=== PATIENT | male | born 1990 | race Two or more races ===

== ENCOUNTER 2019-01-13 15:13 | Emergency (ER) | payer OTHER ==
[~2019-01-13] VITALS: Ht 182.9 cm; Wt 76.7 kg
[2019-01-13] MEDS ORDERED: LORAZEPAM 0.5 MG TABLET PO ONE (15:30)
--- NOTE | 2019-01-13 15:34 | NUR ---
Patient discharged to home in stable conditon. Written and verbal after care instructions given. Patient verbalizes understanding of instructions.
[2019-01-13] MEDS ORDERED: LORAZEPAM 1 MG TABLET ONE (15:35)
== END 2019-01-13 15:35 | disposition home or self-care (01) ==
LOC: ER 15:15
DX: F41.9 Anxiety disorder, unspecified (principal)
CPT/HCPCS: A4663

== ENCOUNTER 2019-01-15 21:04 | Emergency (ER) | payer OTHER ==
[~2019-01-15] VITALS: Ht 182.9 cm; Wt 72.6 kg
--- NOTE | 2019-01-15 21:51 | NUR ---
PATIENT LEFT WITHOUT BEING SEEN BY ERMD
== END 2019-01-15 21:53 | disposition left against medical advice (07) ==
LOC: ER 21:04
DX: Z53.21 Procedure and treatment not carried out due to patient leaving prior to being seen by health care provider (principal)
CPT/HCPCS: A4663

== ENCOUNTER 2019-02-02 03:31 | Emergency (ER) | payer OTHER ==
[~2019-02-02] VITALS: Ht 182.9 cm; Wt 76.7 kg
[2019-02-02] MEDS ORDERED: chlorproMAZINE 50 MG/2 ML AMPUL ONE (03:56)
[2019-02-02] MEDS ORDERED: chlorproMAZINE 50 MG/2 ML AMPUL IM ONE (04:00)
[2019-02-02 04:36] VITALS: BP 146/70
== END 2019-02-02 04:37 | disposition home or self-care (01) ==
LOC: ER 03:32
DX: F15.10 Other stimulant abuse, uncomplicated (principal); F17.200 Nicotine dependence, unspecified, uncomplicated
CPT/HCPCS: 96372; 99283; J3230; A4663

== ENCOUNTER 2019-02-11 16:27 | Emergency (ER) | payer OTHER ==
[~2019-02-11] VITALS: Ht 182.9 cm; Wt 76.7 kg
[2019-02-11] MEDS ORDERED: LORAZEPAM 0.5 MG TABLET PO ONE (16:45)
[2019-02-11] MEDS ORDERED: LORAZEPAM 1 MG TABLET ONE (16:47)
--- NOTE | 2019-02-11 16:55 | NUR ---
Patient received to ED with co rapid heart rate, set on monitor HR [address] ST. Patient starts having panic attack, and HR increased to 157, and calming down with nurses at bedside. EKG being done, and patient seen by MD, and orders written.
[2019-02-11] MEDS ORDERED: HALOPERIDOL LACTATE 5 MG/1 ML VIAL ONE (16:59)
[2019-02-11] MEDS ORDERED: LORAZEPAM 2 MG/1 ML VIAL IV ONE (17:00)
[2019-02-11] MEDS ORDERED: HALOPERIDOL LACTATE 5 MG/1 ML VIAL IV ONE (17:00)
[2019-02-11] MEDS ORDERED: LORAZEPAM 2 MG/1 ML VIAL ONE (17:00)
--- NOTE | 2019-02-11 18:00 | NUR ---
PT RESTING, NO SIGN OF DISTRESS AT THIS POINT.
--- NOTE | 2019-02-11 18:57 | NUR ---
HANDS OFF REPORT GIVEN TO EHSAN GIBBSRN
--- NOTE | 2019-02-11 19:32 | NUR ---
Patient discharged to home in stable conditon. Written and verbal after care instructions given. Patient verbalizes understanding of instructions. Instructed patient to not drive. Patients girlfriend ordered an uber to pick patient up. Patient ambulated with stable gait.
[2019-02-11 19:35] VITALS: BP 130/60
== END 2019-02-11 17:20 | disposition home or self-care (01) ==
LOC: ER 16:29
DX: F15.10 Other stimulant abuse, uncomplicated (principal); F17.200 Nicotine dependence, unspecified, uncomplicated
CPT/HCPCS: 93005; 96374; 99283; J1630; A4663; J2060; J7030

== ENCOUNTER 2019-02-19 05:44 | Emergency (ER) | payer OTHER ==
[~2019-02-19] VITALS: Ht 182.9 cm; Wt 76.7 kg
[2019-02-19] MEDS ORDERED: LORAZEPAM 0.5 MG TABLET PO ONE (06:15)
[2019-02-19] MEDS ORDERED: LORAZEPAM 1 MG TABLET ONE (06:15)
--- NOTE | 2019-02-19 06:18 | NUR ---
Patient discharged to home in stable conditon. Written and verbal after care instructions given. Patient verbalizes understanding of instructions. Walked out of ER with no distress noted
[2019-02-19 06:19] VITALS: BP 118/76
== END 2019-02-19 06:19 | disposition home or self-care (01) ==
LOC: ER 05:45
DX: F41.9 Anxiety disorder, unspecified (principal); F15.10 Other stimulant abuse, uncomplicated; F17.290 Nicotine dependence, other tobacco product, uncomplicated; Z76.0 Encounter for issue of repeat prescription; Z71.6 Tobacco abuse counseling
CPT/HCPCS: A4663

== ENCOUNTER 2019-02-22 14:29 | Emergency (ER) | payer OTHER ==
[~2019-02-22] VITALS: Ht 182.9 cm; Wt 76.7 kg
[2019-02-22] MEDS ORDERED: LORAZEPAM 0.5 MG TABLET PO ONE (15:00)
[2019-02-22] MEDS ORDERED: LORAZEPAM 1 MG TABLET ONE (15:02)
--- NOTE | 2019-02-22 15:07 | NUR ---
PT WAS EVALUATED BY DR REVELES. PT WAS D/C'D TO HOME. D/C INSTRUCTIONS GIVEN TO THE PT.
[2019-02-22 15:08] VITALS: BP 135/69
== END 2019-02-22 15:11 | disposition home or self-care (01) ==
LOC: ER 14:29
DX: F41.9 Anxiety disorder, unspecified (principal); F15.10 Other stimulant abuse, uncomplicated; F17.200 Nicotine dependence, unspecified, uncomplicated; Z76.0 Encounter for issue of repeat prescription
CPT/HCPCS: A4663

== ENCOUNTER 2019-03-08 14:35 | Emergency (ER) | payer OTHER ==
[~2019-03-08] VITALS: Ht 182.9 cm; Wt 76.7 kg
[2019-03-08] MEDS ORDERED: LORAZEPAM 0.5 MG TABLET PO ONE (15:00)
[2019-03-08 15:03] VITALS: BP 138/97
--- NOTE | 2019-03-08 15:03 | NUR ---
Patient discharged to home in stable conditon. Written and verbal after care instructions given. Patient verbalizes understanding of instructions.
[2019-03-08] MEDS ORDERED: LORAZEPAM 1 MG TABLET ONE (15:05)
== END 2019-03-08 15:04 | disposition home or self-care (01) ==
LOC: ER 14:35
DX: F41.9 Anxiety disorder, unspecified (principal); F17.200 Nicotine dependence, unspecified, uncomplicated; F15.10 Other stimulant abuse, uncomplicated; Z76.0 Encounter for issue of repeat prescription
CPT/HCPCS: A4663

== ENCOUNTER 2019-03-19 22:47 | Emergency (ER) | payer OTHER ==
[~2019-03-19] VITALS: Ht 182.9 cm; Wt 75.3 kg
[2019-03-19] MEDS ORDERED: LORAZEPAM 1 MG TABLET ONE (23:37)
[2019-03-19] MEDS ORDERED: LORAZEPAM 0.5 MG TABLET PO ONE (23:45)
--- NOTE | 2019-03-19 23:50 | NUR ---
PATIENT STATES FEELING BETTER NOW
--- NOTE | 2019-03-19 23:51 | NUR ---
Patient discharged to home in stable conditon. Written and verbal after care instructions given. Patient verbalizes understanding of instructions. WALKED OUT OF ER WITH NO DISTRESS NOTED
[2019-03-19 23:54] VITALS: BP 128/84
== END 2019-03-19 23:54 | disposition home or self-care (01) ==
LOC: ER 22:47
DX: F41.9 Anxiety disorder, unspecified (principal); F15.10 Other stimulant abuse, uncomplicated; F41.0 Panic disorder [episodic paroxysmal anxiety]
CPT/HCPCS: A4663

== ENCOUNTER 2019-03-23 14:36 | Emergency (ER) | payer OTHER ==
[~2019-03-23] VITALS: Ht 182.9 cm; Wt 75.3 kg
--- NOTE | 2019-03-23 15:42 | NUR ---
STEPHANIE FRANK AT BEDSIDE FOR MSE.
[2019-03-23] MEDS ORDERED: LORAZEPAM 0.5 MG TABLET PO ONE (15:45)
[2019-03-23] MEDS ORDERED: LORAZEPAM 1 MG TABLET ONE (15:46)
--- NOTE | 2019-03-23 15:47 | NUR ---
Patient discharged to home in stable conditon. Written and verbal after care instructions given. Patient verbalizes understanding of instructions. ALL BELONGINGS W/ PT. PT SELF-AMBULATED W/O DIFFICULTY. PT REPORT HE WILL WALK HOME.
[2019-03-23 15:48] VITALS: BP 122/72
== END 2019-03-23 15:49 | disposition home or self-care (01) ==
LOC: ER 14:36
DX: F41.9 Anxiety disorder, unspecified (principal); F15.10 Other stimulant abuse, uncomplicated; F17.200 Nicotine dependence, unspecified, uncomplicated; Z76.0 Encounter for issue of repeat prescription
CPT/HCPCS: A4663

== ENCOUNTER 2019-08-15 15:06 | Emergency (ER) | payer OTHER ==
[~2019-08-15] VITALS: Ht 182.9 cm; Wt 75.3 kg
--- NOTE | 2019-08-15 15:06 | NUR ---
Patient ambulated to ER bed 2A with brisk steady gait, c/o L ankle pains & swelling for a week- distal pulses+, CMS intact, patient admits to IV drug use, pending MD evaluation
[2019-08-15] MEDS ORDERED: LIDOCAINE 1%-EPI 1:100,000 20 ML VIAL TP ONE (15:45)
[2019-08-15] MEDS ORDERED: IBUPROFEN 800 MG TABLET PO ONE (15:45)
[2019-08-15] MEDS ORDERED: IBUPROFEN 800 MG TABLET ONE (15:50)
[2019-08-15] MEDS ORDERED: LIDOCAINE 1%-EPI 1:100,000 20 ML VIAL ONE (15:57)
[2019-08-15 16:01] LABS: BASOPHILS % (AUTO) 0.6 % (0.0-2.0); CREATININE 0.9 mg/dL (0.6-1.3); EOSINOPHILS # (AUTO) 0.1 K/uL (0.0-0.7); EOSINOPHILS % (AUTO) 2.5 % (0.0-7.0); HEMATOCRIT 32.4 % (36.7-47.1); HEMOGLOBIN 10.5 g/dL (12.5-16.3); LYMPHOCYTES # (AUTO) 2.3 K/uL (20.0-40.0); MEAN CORPUSCULAR HEMOGLOBIN 24.4 uug (23.8-33.4); MEAN CORPUSCULAR HGB CONC 32 g/dL (32.5-36.3); MEAN CORPUSCULAR VOLUME 75.5 fL (73.0-96.2); MONOCYTES # (AUTO) 0.6 K/uL (2.0-10.0); NEUTROPHILS # (AUTO) 2.7 K/uL (1.8-8.9); NEUTROPHILS % (AUTO) 46.9 % (38.5-71.5); PLATELET COUNT (AUTO) 435 K/uL (152-348); POTASSIUM 3.8 mmol/L (3.5-5.1); WHITE BLOOD COUNT (AUTO) 5.8 K/uL (3.6-10.2)
--- NOTE | 2019-08-15 16:01 | NUR ---
Patient is eating sandwich & cup of fruit with good appetite.
[2019-08-15 16:07] LABS: BILIRUBIN,DIRECT 0.1 mg/dL (0.0-0.2); BILIRUBIN,TOTAL 0.1 mg/dL (0.2-1.0); TOTAL PROTEIN, SERUM 8.5 g/dL (6.4-8.2)
[2019-08-15] MEDS ORDERED: CEFTRIAXONE 1 G VIAL IM ONE (16:30)
[2019-08-15] MEDS ORDERED: AZITHROMYCIN 250 MG TABLET PO ONE (16:30)
[2019-08-15] MEDS ORDERED: LIDOCAINE HCL 1% 20 ML VIAL ONE (16:38)
[2019-08-15] MEDS ORDERED: AZITHROMYCIN 250 MG TABLET ONE (16:39)
[2019-08-15] MEDS ORDERED: CEFTRIAXONE 1 G VIAL ONE (16:39)
--- NOTE | 2019-08-15 16:44 | NUR ---
Pending urine specimen, patient is resting comfortably on gurney with a friend & dog. Nursing supervisor mixing John notified re: dog in ER. "Okay to be with patient." per g supervisor mixing John.
--- NOTE | 2019-08-15 16:47 | NUR ---
A pitcher of juice was given to patient. Comfort and safety measures maintained.
--- NOTE | 2019-08-15 17:01 | NUR ---
Another pitcher of juice was given to patient, still for urine specimen
--- NOTE | 2019-08-15 17:30 | NUR ---
Patient is resting comfortably on gurney with eyes closed.
--- NOTE | 2019-08-15 17:31 | NUR ---
"Okay to go home." per doctor even without urine specimen. Patient was given written and verbal discharge instructions. Patient verbalizes understanding of instructions. Patient is ambulatory with steady gait. Patient refuses offer of penitentiary placement. Patient was also given a list of available shelters in surrounding area. Patient will wait for his roommate in the waiting room with his dog.
--- NOTE | 2019-08-15 17:36 | NUR ---
Tap card x1 was requested from the [facility].
== END 2019-08-15 17:38 | disposition home or self-care (01) ==
LOC: ER 15:09
DX: M25.472 Effusion, left ankle (principal); M13.172 Monoarthritis, not elsewhere classified, left ankle and foot; F15.10 Other stimulant abuse, uncomplicated; F12.10 Cannabis abuse, uncomplicated; F17.200 Nicotine dependence, unspecified, uncomplicated; F41.9 Anxiety disorder, unspecified
CPT/HCPCS: 20605; 36415; 73610; 80048; 80076; 85025; 85651; 96372; 99284; J0696; J3490 ×2; A4663; Q0144

== ENCOUNTER 2019-09-15 17:23 | Emergency (ER) | payer OTHER ==
[~2019-09-15] VITALS: Ht 182.9 cm; Wt 75.7 kg
--- NOTE | 2019-09-15 17:23 | NUR ---
DORA GONZALEZ was called on this patient prior to entering ER bed 3. Patient was seen arguing with ER staff in front of the registration window. Patient refused to move away from the ER double doors after repeated reminders that he can get hurt when the doors open. Patient kept banging on the wall loudly.
--- NOTE | 2019-09-15 18:04 | NUR ---
Patient ate 100% of hot dinner tray with very good appetite.
--- NOTE | 2019-09-15 18:16 | NUR ---
Dr Mendoza is at bedside doing the MSE.
--- NOTE | 2019-09-15 18:26 | NUR ---
disciplinary hearing officer wanded patient and belongings. 2 knives & IV needles were identified.
[2019-09-15] MEDS ORDERED: LORAZEPAM 0.5 MG TABLET PO ONE (18:30)
[2019-09-15] MEDS ORDERED: LORAZEPAM 1 MG TABLET ONE (18:30)
--- NOTE | 2019-09-15 18:39 | NUR ---
Patient given written and verbal discharge instructions. Patient verbalized understanding & compliance of instructions. Patient is ambulatory with steady gait. Patient refuses offer of detention placement. Patient was given a list of available shelters in surrounding area. Juice x3 cups, fruit cup & water bottle were given per patient's request. Dinner tray was offered. Telephone assistance given as well. fine arts packer for discharge done.
== END 2019-09-15 18:44 | disposition home or self-care (01) ==
LOC: ER 17:28
DX: F41.9 Anxiety disorder, unspecified (principal); F15.10 Other stimulant abuse, uncomplicated; F12.10 Cannabis abuse, uncomplicated; F17.200 Nicotine dependence, unspecified, uncomplicated; Z76.0 Encounter for issue of repeat prescription
CPT/HCPCS: A4663

== ENCOUNTER 2019-11-05 18:32 | Emergency (ER) | payer OTHER ==
[~2019-11-05] VITALS: Ht 182.9 cm; Wt 74.8 kg
--- NOTE | 2019-11-05 18:59 | NUR ---
PATIENT WAS MSE BY DR HALEY IN ROOM 03A. PATIENT A & O X4.
[2019-11-05] MEDS ORDERED: LORAZEPAM 1 MG TABLET ONE (19:05)
[2019-11-05] MEDS: LORAZEPAM 0.5 MG TABLET PO ONE (19:05)
--- NOTE | 2019-11-05 19:17 | NUR ---
Patient discharged to home in stable conditon. Written and verbal after care instructions given. Patient verbalizes understanding of instructions.
[2019-11-05 19:20] VITALS: BP 138/77
== END 2019-11-05 19:23 | disposition home or self-care (01) ==
LOC: ER 18:32
DX: F41.9 Anxiety disorder, unspecified (principal); F15.10 Other stimulant abuse, uncomplicated; F13.20 Sedative, hypnotic or anxiolytic dependence, uncomplicated; F12.10 Cannabis abuse, uncomplicated; F17.290 Nicotine dependence, other tobacco product, uncomplicated; Z76.0 Encounter for issue of repeat prescription; Z71.6 Tobacco abuse counseling
CPT/HCPCS: A4663

== ENCOUNTER 2020-06-13 02:42 | Emergency (ER) | payer OTHER ==
[~2020-06-13] VITALS: Ht 182.9 cm; Wt 78.0 kg
--- NOTE | 2020-06-13 02:50 | NUR ---
Dr. Casey at bedside for MSE
[2020-06-13] MEDS ORDERED: [UNRECOGNIZED DRUG - REMARK] (02:52)
[2020-06-13] MEDS ORDERED: IV NORMAL SALINE 1000 ML BAG IV ONE (03:00)
--- NOTE | 2020-06-13 03:40 | NUR ---
IV removed. Catheter intact and site benign. Pressure and 4x4 gauze applied to site. No bleeding noted.
--- NOTE | 2020-06-13 03:43 | NUR ---
Patient does not wish to proceed with medical care recommended by Dr. Casey. Patient given information related to possible complications, up to and including , which could occur as a result of leaving the hospital at this time. Patient verbalizes understanding of risks involved due to leaving against medical advice. Patient has signed AMA form. aa/ox4. able to speak in complete sentences ambulatory with steady gait all belongings with pt
[2020-06-13 03:46] LABS: BASOPHILS # (AUTO) 0.1 K/uL (0.0-8.0); BASOPHILS % (AUTO) 1.2 % (0.0-2.0); CARBON DIOXIDE 26 mmol/L (21-32); CHLORIDE 104 mmol/L (98-107); CREATININE 1.1 mg/dL (0.6-1.3); EOSINOPHILS # (AUTO) 0.1 K/uL (0.0-0.7); EOSINOPHILS % (AUTO) 1.1 % (0.0-7.0); GLUCOSE 104 mg/dL (74-106); HEMATOCRIT 33.8 % (36.7-47.1); HEMOGLOBIN 11.3 g/dL (12.5-16.3); LYMPHOCYTES # (AUTO) 1.5 K/uL (20.0-40.0); LYMPHOCYTES % (AUTO) 26.5 % (20.5-51.5); MEAN CORPUSCULAR HEMOGLOBIN 25.8 uug (23.8-33.4); MEAN CORPUSCULAR HGB CONC 33 g/dL (32.5-36.3); MEAN CORPUSCULAR VOLUME 77.5 fL (73.0-96.2); MONOCYTES # (AUTO) 0.7 K/uL (2.0-10.0); MONOCYTES % (AUTO) 11.7 % (0.0-11.0); NEUTROPHILS # (AUTO) 3.3 K/uL (1.8-8.9); NEUTROPHILS % (AUTO) 59.5 % (38.5-71.5); PLATELET COUNT (AUTO) 302 K/uL (152-348); POTASSIUM 3.3 mmol/L (3.5-5.1); RED BLOOD CELL COUNT(AUTO) 4.36 MIL/uL (4.06-5.63); UREA NITROGEN, BLOOD 17 mg/dL (7-18); WHITE BLOOD COUNT (AUTO) 5.6 K/uL (3.6-10.2)
[2020-06-13 03:47] VITALS: BP 126/83
[2020-06-13 03:52] LABS: ALANINE AMINOTRANSFERASE 20 U/L (16-63); ALKALINE PHOSPHATASE 102 U/L (50-136); ASPARTATE AMINOTRANSFERASE 33 U/L (15-37); BILIRUBIN,DIRECT < 0.1 mg/dL (0.0-0.2); BILIRUBIN,TOTAL 0.3 mg/dL (0.2-1.0); TOTAL PROTEIN, SERUM 7.8 g/dL (6.4-8.2)
[2020-06-13 03:55] LABS: ETHANOL < 3 MG/DL (0-0)
[2020-06-13 04:02] LABS: THYROID STIMULATING HORMONE 0.792 mIU/mL (0.358-3.740)
== END 2020-06-13 03:43 | disposition left against medical advice (07) ==
LOC: ER 02:46
DX: R07.9 Chest pain, unspecified (principal); R06.02 Shortness of breath; F15.10 Other stimulant abuse, uncomplicated; R07.2 Precordial pain; F17.200 Nicotine dependence, unspecified, uncomplicated
CPT/HCPCS: 36415; 70030-TC; 84443; 85025; 93005; A4663; G0480

== ENCOUNTER 2020-08-10 17:33 | Emergency (ER) | payer OTHER ==
[~2020-08-10] VITALS: Ht 182.9 cm; Wt 78.5 kg
[~2020-08-10 17:33] MED LIST: [UNRECOGNIZED DRUG - REMARK]
[2020-08-10] MEDS ORDERED: ALPR2TAB2 PO (17:41)
[2020-08-10] MEDS ORDERED: KETOROLAC TROMETHAMINE 30 MG INJ ONE (17:56)
[2020-08-10] MEDS ORDERED: LORAZEPAM 1 MG TABLET ONE (17:56)
[2020-08-10] MEDS ORDERED: LORAZEPAM 0.5 MG TABLET PO ONE (18:00)
[2020-08-10] MEDS ORDERED: KETOROLAC TROMETHAMINE 15 MG INJ IM ONE (18:00)
[2020-08-10 18:15] VITALS: BP 131/75
--- NOTE | 2020-08-10 18:15 | NUR ---
Patient discharged to home in stable condition. Written and verbal after care instructions given. Patient verbalizes understanding of instructions. Stressed follow up or return to ER for worsening s/s.
== END 2020-08-10 18:16 | disposition home or self-care (01) ==
LOC: ER 17:37
DX: R07.89 Other chest pain (principal); F41.9 Anxiety disorder, unspecified; F19.10 Other psychoactive substance abuse, uncomplicated; F15.10 Other stimulant abuse, uncomplicated
CPT/HCPCS: 71045; 93005; 96372; 99284; J1885; A4663

== ENCOUNTER 2020-08-16 22:51 | Emergency (ER) | payer OTHER ==
[~2020-08-16] VITALS: Ht 182.9 cm; Wt 74.8 kg
[~2020-08-16 22:51] MED LIST changes: +ALPR2TAB2 PO
--- NOTE | 2020-08-16 23:15 | NUR ---
at bedside for assessment
[2020-08-16] MEDS ORDERED: IV NORMAL SALINE 1000 ML BAG IV ONE (23:30)
[2020-08-16 23:42] LABS: BASOPHILS # (AUTO) 0.1 K/uL (0.0-8.0); BASOPHILS % (AUTO) 0.9 % (0.0-2.0); EOSINOPHILS # (AUTO) 0.1 K/uL (0.0-0.7); EOSINOPHILS % (AUTO) 1.2 % (0.0-7.0); HEMATOCRIT 36.4 % (36.7-47.1); HEMOGLOBIN 11.9 g/dL (12.5-16.3); LYMPHOCYTES # (AUTO) 1.4 K/uL (20.0-40.0); LYMPHOCYTES % (AUTO) 13.3 % (20.5-51.5); MEAN CORPUSCULAR HEMOGLOBIN 26.3 uug (23.8-33.4); MEAN CORPUSCULAR HGB CONC 33 g/dL (32.5-36.3); MEAN CORPUSCULAR VOLUME 80.1 fL (73.0-96.2); MONOCYTES # (AUTO) 0.9 K/uL (2.0-10.0); NEUTROPHILS # (AUTO) 8.1 K/uL (1.8-8.9); NEUTROPHILS % (AUTO) 76.6 % (38.5-71.5); PLATELET COUNT (AUTO) 402 K/uL (152-348); RED BLOOD CELL COUNT(AUTO) 4.54 MIL/uL (4.06-5.63); WHITE BLOOD COUNT (AUTO) 10.7 K/uL (3.6-10.2)
[2020-08-16 23:52] LABS: CARBON DIOXIDE 25 mmol/L (21-32); CHLORIDE 105 mmol/L (98-107); CREATININE 0.9 mg/dL (0.6-1.3); GLUCOSE 79 mg/dL (74-106); POTASSIUM 3.2 mmol/L (3.5-5.1); UREA NITROGEN, BLOOD 7 mg/dL (7-18)
[2020-08-16 23:58] LABS: ALANINE AMINOTRANSFERASE 27 U/L (16-63); ALKALINE PHOSPHATASE 110 U/L (50-136); ASPARTATE AMINOTRANSFERASE 26 U/L (15-37); BILIRUBIN,DIRECT < 0.1 mg/dL (0.0-0.2); BILIRUBIN,TOTAL < 0.1 mg/dL (0.2-1.0); LIPASE 81 U/L (73-393); TOTAL PROTEIN, SERUM 7.9 g/dL (6.4-8.2)
[2020-08-17] MEDS ORDERED: CIPROFLOXACIN HCL 250 MG TABLET ONE (00:12)
[2020-08-17] MEDS ORDERED: POTASSIUM CHLORIDE 20 MEQ TAB.PRT.SR PO ONE (00:15)
[2020-08-17] MEDS ORDERED: CIPROFLOXACIN HCL 250 MG TABLET PO ONE (00:15)
[2020-08-17] MEDS ORDERED: POTASSIUM CHLORIDE 20 MEQ TAB.PRT.SR ONE (00:28)
--- NOTE | 2020-08-17 00:33 | NUR ---
Patient discharged to home in stable condition. Took all belongings, instructed to take all antibiotics. no signs of acute distress. Written and verbal after care instructions given. Patient verbalizes understanding of instructions. Stressed follow up or return to ER for worsening s/s.
[2020-08-17 00:37] VITALS: BP 115/70
== END 2020-08-17 00:34 | disposition home or self-care (01) ==
LOC: ER 22:55
DX: R10.33 Periumbilical pain (principal); R19.7 Diarrhea, unspecified; E87.6 Hypokalemia; D72.829 Elevated white blood cell count, unspecified; D64.9 Anemia, unspecified; F41.9 Anxiety disorder, unspecified; Z79.899 Other long term (current) drug therapy
CPT/HCPCS: 83690; 85025; A4663; J7030

== ENCOUNTER 2020-09-14 10:08 | Emergency (ER) | payer OTHER ==
[~2020-09-14] VITALS: Ht 182.9 cm; Wt 74.8 kg
--- NOTE | 2020-09-14 10:32 | NUR ---
Patient ambulated with stable gait. A/Ox4. Speech is clear, and speaks in complete sentences. Patient appears very anxious. Patient came for c/o difficulty breathing. Patient has a history of poly drug abuse. Denies any n/v/d or any gu distress. Patient in bed at lowest position, sr upx2, call light within reach. Fall precautions implemented per protocol. Awaiting FRANCISCA donald.
--- NOTE | 2020-09-14 10:52 | NUR ---
Patient LWBS, states that he will go get checked for COVID at the drive through [facility]. Patient A/Ox4. No SI/HI or any A/V hallucinations.
[2020-09-14 10:53] VITALS: BP 131/73
--- NOTE | 2020-09-14 10:54 | NUR ---
Patient's father will be picking him up and taking him elsewhere.
== END 2020-09-14 10:54 | disposition left against medical advice (07) ==
LOC: ER 10:08
DX: Z75.3 Unavailability and inaccessibility of health-care facilities (principal)
CPT/HCPCS: A4663

== ENCOUNTER 2020-11-19 22:09 | Emergency (ER) | payer OTHER ==
[~2020-11-19] VITALS: Ht 182.9 cm; Wt 74.8 kg
[2020-11-19] MEDS ORDERED: [UNRECOGNIZED DRUG - REMARK] (22:50)
[2020-11-19] MEDS ORDERED: CEPH-570 PO (22:52)
--- NOTE | 2020-11-19 23:35 | NUR ---
Dr. Casey at bedside for MSE.
--- NOTE | 2020-11-19 23:40 | NUR ---
Xray at bedside.
--- NOTE | 2020-11-20 00:05 | NUR ---
Patient discharged to home in stable condition. Written and verbal after care instructions given. Patient verbalizes understanding of instructions. Stressed follow up or return to ER for worsening s/s. Patient out of ER with steady gait, no acute signs of distress, VSS, all belongings taken, provided with a copy of Xray result.
[2020-11-20 00:06] VITALS: BP 121/82
== END 2020-11-20 00:06 | disposition home or self-care (01) ==
LOC: ER 22:13
DX: S90.812A Abrasion, left foot, initial encounter (principal); W25.XXXA Contact with sharp glass, initial encounter; W22.8XXA Striking against or struck by other objects, initial encounter; Y92.89 Other specified places as the place of occurrence of the external cause; F41.9 Anxiety disorder, unspecified; F15.10 Other stimulant abuse, uncomplicated; Z79.899 Other long term (current) drug therapy
CPT/HCPCS: 73630; A4663

== ENCOUNTER 2021-05-07 00:07 | Emergency (ER) | payer OTHER ==
[~2021-05-07] VITALS: Ht 188 cm; Wt 77.1 kg
[~2021-05-07 00:07] MED LIST changes: -ALPR2TAB2 PO; +CEPH-570 PO
--- NOTE | 2021-05-07 01:02 | NUR ---
Dr. Guerra at bedside to evaluate pt.
[2021-05-07] MEDS ORDERED: VANCOMYCIN 1G/D5W 200 ML PIGGYBACK IV ONE (01:15)
[2021-05-07] MEDS ORDERED: TDAP DIPH,PERTUSS,TET VAC/PF 0.5 ML DISP.SYRIN IM ONE (01:15)
[2021-05-07] MEDS ORDERED: PIPERACILLIN SODIUM/TAZOBACTAM 3.375 G in IV DEXTROSE 5% 50 ML IV ONE (01:15)
--- NOTE | 2021-05-07 01:25 | NUR ---
TDAP Not administered because pt. recieved TDAP from [facility] today.
--- NOTE | 2021-05-07 01:27 | NUR ---
Pt. cc left index finger swelling and redness, started 1 day ago. Pt. was at [facility] today for his finger. Pt. recieved antibiotics there. Pt left AMA because he stated he was tired of waiting. Pt is HIV+ but has not been taking his HIV meds consistently because he states he was not able to pick it up at the pharmacy. Pt. has hx of drug use. Pt. denies IV drug use. Pt. is A&Ox4, afebrile, tachycardic hr 120-125 bpm. Pt is stable. Pt. denies other symptoms.
[2021-05-07] MEDS ORDERED: CEFEPIME HCL 2 G in IV DEXTROSE 5% 100 ML IV ONE (01:30)
--- NOTE | 2021-05-07 01:31 | NUR ---
Dr. Guerra called [facility] regarding pt. They report that they had transfer arranged w/ [facility] due to pts. insurance and had a bed arranged already but pt. left AMA before transfer. They also have a hand surgeon employee communications specialist at [facility]. Currently waiting to hear back from pts. insurance on transfer from [facility] to [facility].
[2021-05-07 01:43] LABS: HEMATOCRIT 30.2 % (36.7-47.1); MEAN CORPUSCULAR VOLUME 74.5 fL (73.0-96.2); PLATELET COUNT (AUTO) 383 K/uL (152-348)
[2021-05-07 01:47] LABS: CREATININE 1.2 mg/dL (0.6-1.3); POTASSIUM 3.9 mmol/L (3.5-5.1)
[2021-05-07] MEDS ORDERED: CEFEPIME HCL 1 G VIAL ONE (01:53)
--- NOTE | 2021-05-07 02:04 | NUR ---
Pt. states he was dx with lymphoma 1 month prior and that he has not started treatment. He does not have the name of his oncologist. Pt. 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
--- NOTE | 2021-05-07 02:08 | NUR ---
Pts. insurance approved transfer to [facility]. Dr. Guerra is consulting on the phone with Dr. Alvarez, the Hospitalist safety and health consultant at [facility].
--- NOTE | 2021-05-07 02:13 | NUR ---
Dr. Alvarez has accepted the pt. for admission to [facility].
[2021-05-07] MEDS ORDERED: KETOROLAC TROMETHAMINE 15 MG INJ IVP ONE (02:45)
[2021-05-07] MEDS ORDERED: KETOROLAC TROMETHAMINE 15 MG INJ ONE (02:48)
--- NOTE | 2021-05-07 03:10 | NUR ---
Pt. accidentially dislodged IV, new 22g IV was placed in left AC.
--- NOTE | 2021-05-07 03:28 | NUR ---
Currently waiting to hear back from [employer] mattress spring encaser for pt. to find available ambulance trasportation for pt. and get available bed for pt. at [facility].
--- NOTE | 2021-05-07 03:50 | NUR ---
Arranged transport for pt. by [facility]. Spoke with Alex, ETA is 8:30am.
--- NOTE | 2021-05-07 03:56 | NUR ---
Pt. resting in bed. Pt. denies pain or other symptoms. Pt. stable, will continue to monitor.
--- NOTE | 2021-05-07 04:35 | NUR ---
Pt. sleeping in bed. Pt. stable, no changes in condition. Will continue to monitor.
--- NOTE | 2021-05-07 05:07 | NUR ---
Spoke with Janet-manager diesel at [facility]. She states they are still working on getting a room for the pt and that the melter supervisor open hearth furnace at [facility] is aware. Will continue to follow up. Addendum: 05/07/21 at 0515 by ZION Spoke with Charlie manager diesel at [facility] (phone # [phone]). She states they are still working on getting a room for the pt and that the melter supervisor open hearth furnace at [facility] is aware. Will continue to follow up.
--- NOTE | 2021-05-07 05:16 | NUR ---
Room assigned to pt. at [facility] is [id number].
--- NOTE | 2021-05-07 05:25 | NUR ---
Gave report to ERICH Bullard at [facility].
--- NOTE | 2021-05-07 07:23 | NUR ---
Gave report to ERICH Caraballo.
--- NOTE | 2021-05-07 08:40 | NUR ---
Report given to [address] [place] [address] Amb[address]. Pt AAOx4 with abc's intact. Ambulatory with steady gait. All personal belongings taken with patient. Nightshift nurse admitted to giving report to nurse Bullard earlier. ([facility] room 1449).
== END 2021-05-07 08:52 | disposition short-term general hospital (02) ==
LOC: ER 00:11
DX: L08.9 Local infection of the skin and subcutaneous tissue, unspecified (principal); F15.10 Other stimulant abuse, uncomplicated; Z91.14 Patient's other noncompliance with medication regimen; F41.9 Anxiety disorder, unspecified; Z79.899 Other long term (current) drug therapy; Z20.822 Contact with and (suspected) exposure to COVID-19
CPT/HCPCS: 36415; 73130; 80048; 85025; 85651; 85730; 86850; 86900; 86901; 87040 ×2; 87426; 96374; 96375; 99285; J0692; J1885; J7060; A4663

== ENCOUNTER 2021-09-27 02:48 | Emergency (ER) | payer OTHER ==
[~2021-09-27] VITALS: Ht 182.9 cm; Wt 75.3 kg
[2021-09-27] MEDS ORDERED: ONDANSETRON ODT 4 MG TAB.RAPDIS SL ONE (03:30)
[2021-09-27] MEDS ORDERED: HYDROMORPHONE 1 MG/1 ML DISP.SYRIN IM ONE (03:30)
[2021-09-27] MEDS ORDERED: ONDANSETRON ODT 4 MG TAB.RAPDIS ONE (03:31)
[2021-09-27] MEDS ORDERED: HYDROMORPHONE 1 MG/1 ML DISP.SYRIN ONE (03:31)
[2021-09-27 03:41] VITALS: BP 137/87
== END 2021-09-27 03:41 | disposition home or self-care (01) ==
LOC: ER 02:54
DX: I87.1 Compression of vein (principal); Z85.9 Personal history of malignant neoplasm, unspecified
CPT/HCPCS: 96372; 99283; J1170; A4663; Q0162

== ENCOUNTER 2022-11-06 03:31 | Emergency (ER) | END 2022-11-06 04:11 | disposition home or self-care (01) | DX: F15.10 Other stimulant abuse, uncomplicated (principal); M27.2 Inflammatory conditions of jaws; Z85.89 Personal history of malignant neoplasm of other organs and systems; F12.90 Cannabis use, unspecified, uncomplicated; R03.0 Elevated blood-pressure reading, without diagnosis of hypertension ==

== ENCOUNTER 2023-01-17 17:05 | Emergency (ER) | payer MEDICAID, OTHER ==
[~2023-01-17] VITALS: Ht 182.9 cm; Wt 70.3 kg
[~2023-01-17 17:05] MED LIST changes: +CLIN300C12 PO
--- NOTE | 2023-01-17 19:17 | NUR ---
Received report from Areli JUNG.
[2023-01-17] MEDS ORDERED: LIDOCAINE 1%-EPI 1:100,000 20 ML VIAL MC ONE (19:30)
[2023-01-17] MEDS ORDERED: LIDOCAINE 2%-EPI 1:100,000 20 ML VIAL ONE (20:05)
[2023-01-17] MEDS ORDERED: LIDOCAINE HCL 1% 20 ML VIAL ONE (20:05)
--- NOTE | 2023-01-17 20:06 | NUR ---
Dr Casey with patient I&D in progress.
[2023-01-17] MEDS ORDERED: SULFAMETH/TRIMETH 800/160 MG TABLET ONE (20:39)
[2023-01-17] MEDS ORDERED: SULFAMETH/TRIMETH 800/160 MG TABLET PO ONE (20:45)
[2023-01-17] MEDS ORDERED: SULF1TAB48 PO (20:52)
--- NOTE | 2023-01-17 21:02 | NUR ---
Patient discharged to home in stable condition. Written and verbal after care instructions given. Patient verbalizes understanding of instructions. Stressed follow up or return to ER for worsening s/s. Patient walked home with steady gait.
[2023-01-17 21:41] VITALS: BP 135/81
== END 2023-01-17 21:15 | disposition home or self-care (01) ==
LOC: ER 17:11
DX: L02.213 Cutaneous abscess of chest wall (principal); F41.9 Anxiety disorder, unspecified; Z85.9 Personal history of malignant neoplasm, unspecified; Z79.899 Other long term (current) drug therapy
CPT/HCPCS: 99283; 10060; J3490; A4663

== ENCOUNTER 2023-01-20 10:05 | Emergency (ER) | payer MEDICAID ==
[~2023-01-20] VITALS: Ht 182.9 cm; Wt 70.3 kg
[~2023-01-20 10:05] MED LIST changes: +SULF1TAB48 PO
--- NOTE | 2023-01-20 10:50 | NUR ---
PT IS IN ROOM #2A. DR DE LA GARZA EVALUATED THE PT.
--- NOTE | 2023-01-20 11:14 | NUR ---
PT WAS D/C'd TO HOME. D/C INSTRUCTIONS GIVEN TO THE PT BY DR DE LA GARZA.
[2023-01-20 11:16] VITALS: BP 132/82
== END 2023-01-20 11:17 | disposition home or self-care (01) ==
LOC: ER 10:05
DX: Z48.817 Encounter for surgical aftercare following surgery on the skin and subcutaneous tissue (principal); L02.213 Cutaneous abscess of chest wall; F41.9 Anxiety disorder, unspecified; Z85.9 Personal history of malignant neoplasm, unspecified
CPT/HCPCS: A4663

== ENCOUNTER 2023-04-11 21:12 | Emergency (ER) | payer SELFPAY ==
--- NOTE | 2023-04-11 21:40 | NUR ---
Patient was called to be triaged but was not present in the waiting room or outside of ER.
--- NOTE | 2023-04-11 22:00 | NUR ---
Patient was called to be triaged but was not present in the waiting room or outside of ER.
--- NOTE | 2023-04-11 22:30 | NUR ---
Patient was called to be triaged but was not present in the waiting room or outside of ER. PATIENT WAS NOT TRIAGED OR SEEN BY ERMD.
== END 2023-04-11 22:30 | disposition left against medical advice (07) ==
LOC: ER 21:12
DX: Z53.21 Procedure and treatment not carried out due to patient leaving prior to being seen by health care provider (principal)

== ENCOUNTER → 2023-05-23 16:03 | Emergency (ER) | payer MEDICAID, OTHER | END | disposition left against medical advice (07) | LOC: ER 16:03 | DX: Z53.21 Procedure and treatment not carried out due to patient leaving prior to being seen by health care provider (principal) ==

== ENCOUNTER 2023-06-18 14:16 | Emergency (ER) | payer MEDICAID, OTHER ==
[~2023-06-18] VITALS: Ht 182.9 cm; Wt 70.3 kg
[2023-06-18] MEDS ORDERED: SULF1TAB48 PO (14:56)
[2023-06-18 14:58] VITALS: O2SAT 98
== END 2023-06-18 15:04 | disposition home or self-care (01) ==
LOC: ER 14:18
DX: L03.115 Cellulitis of right lower limb (principal); L03.116 Cellulitis of left lower limb; F17.210 Nicotine dependence, cigarettes, uncomplicated; Z79.2 Long term (current) use of antibiotics; Z79.899 Other long term (current) drug therapy
CPT/HCPCS: A4663

== ENCOUNTER 2023-07-11 13:44 | Emergency (ER) | payer MEDICAID ==
[~2023-07-11] VITALS: Ht 182.9 cm; Wt 66.2 kg
[2023-07-11] MEDS ORDERED: FURO20TA90 (14:05)
[2023-07-11] MEDS ORDERED: CLONAZEPAM 0.5 MG TABLET ONE (15:25)
[2023-07-11] MEDS ORDERED: NEOMY/BACITRA/POLYMYXIN B OINT UD PACKET TP ONE ×2 (15:28→15:30)
[2023-07-11] MEDS ORDERED: CLONAZEPAM 0.5 MG TABLET PO ONE (15:30)
[2023-07-11 16:32] VITALS: BP 129/70; TEMP 97.8; O2SAT 99
== END 2023-07-11 16:32 | disposition home or self-care (01) ==
LOC: ER 13:44
DX: S50.812A Abrasion of left forearm, initial encounter (principal); S50.811A Abrasion of right forearm, initial encounter; S80.212A Abrasion, left knee, initial encounter; S80.211A Abrasion, right knee, initial encounter; S30.811A Abrasion of abdominal wall, initial encounter; R51.9 Headache, unspecified; M54.2 Cervicalgia; F17.210 Nicotine dependence, cigarettes, uncomplicated; Z79.2 Long term (current) use of antibiotics; Z79.899 Other long term (current) drug therapy; V23.49XA Other motorcycle driver injured in collision with car, pick-up truck or van in traffic accident, initial encounter; Y93.89 Activity, other specified; Y92.410 Unspecified street and highway as the place of occurrence of the external cause; Y99.8 Other external cause status
CPT/HCPCS: 70450; 71250; 72125; 73560; A4663

== ENCOUNTER 2023-08-01 18:01 | Emergency (ER) | payer MEDICAID ==
[~2023-08-01] VITALS: Ht 182.9 cm; Wt 70.3 kg
[~2023-08-01 18:01] MED LIST changes: +FURO20TA90
[2023-08-01 18:26] VITALS: O2SAT 98
== END 2023-08-01 23:45 | disposition left against medical advice (07) ==
LOC: ER 18:01
DX: Z53.21 Procedure and treatment not carried out due to patient leaving prior to being seen by health care provider (principal)

== ENCOUNTER 2023-08-27 21:09 | Emergency (ER) | payer MEDICAID, OTHER ==
[~2023-08-27] VITALS: Ht 182.9 cm; Wt 68.0 kg
[2023-08-27] MEDS ORDERED: HYDROMORPHONE 1 MG/1 ML DISP.SYRIN IM ONE (21:45)
[2023-08-27] MEDS ORDERED: LORAZEPAM 0.5 MG TABLET PO ONE (21:45)
[2023-08-27] MEDS ORDERED: ONDANSETRON ODT 4 MG TAB.RAPDIS SL ONE (21:45)
[2023-08-27] MEDS ORDERED: ONDANSETRON ODT 4 MG TAB.RAPDIS ONE (21:47)
[2023-08-27] MEDS ORDERED: HYDROMORPHONE 2 MG/1 ML DISP.SYRIN ONE (21:49)
[2023-08-27] MEDS ORDERED: LORAZEPAM 1 MG TABLET ONE (21:49)
[2023-08-27] MEDS ORDERED: SODIUM BICARBONATE 4.2 % (NEUT) 5 ML VIAL ONE (22:32)
[2023-08-27] MEDS ORDERED: LIDOCAINE 1%-EPI 1:100,000 20 ML VIAL ONE (22:32)
[2023-08-27] MEDS ORDERED: CLIN300C12 PO (23:12)
[2023-08-27] MEDS ORDERED: ONDA4TAB5 PO (23:12)
[2023-08-27] MEDS ORDERED: HYDR-3980 PO (23:12)
[2023-08-27] MEDS ORDERED: CLINDAMYCIN HCL 150 MG CAPSULE PO ONE (23:15)
[2023-08-27] MEDS ORDERED: CLINDAMYCIN HCL 300 MG CAPSULE ONE (23:17)
[2023-08-28 00:43] VITALS: BP 137/88; TEMP 98.9; O2SAT 99
== END 2023-08-28 00:44 | disposition home or self-care (01) ==
LOC: ER 21:09
DX: L02.415 Cutaneous abscess of right lower limb (principal); L03.115 Cellulitis of right lower limb; Z79.2 Long term (current) use of antibiotics; Z79.899 Other long term (current) drug therapy
CPT/HCPCS: 99285; 10060; 96372; J3490 ×2; J1170; A4606; A4663; Q0162

== ENCOUNTER 2023-11-19 15:43 | Emergency (ER) | payer OTHER ==
[~2023-11-19] VITALS: Ht 182.9 cm; Wt 65.8 kg
[~2023-11-19 15:43] MED LIST changes: +FURO-151 PO; +HYDR-3980 PO; +LEVO750T46 PO; +ONDA4TAB5 PO
[2023-11-19 16:06] VITALS: O2SAT 95
[2023-11-19] MEDS ORDERED: BICT1TAB PO ×2 (16:17→17:08)
[2023-11-19] MEDS ORDERED: IBUPROFEN 400 MG TABLET ONE (16:35)
[2023-11-19] MEDS ORDERED: IBUPROFEN 400 MG TABLET PO ONE (16:45)
[2023-11-19] MEDS ORDERED: BENZ-13 PO (17:08)
== END 2023-11-19 19:05 | disposition home or self-care (01) ==
LOC: ER 15:48
DX: U07.1 COVID-19 (principal); R05.9 Cough, unspecified; R07.89 Other chest pain; Z79.899 Other long term (current) drug therapy; Z79.2 Long term (current) use of antibiotics
CPT/HCPCS: 71045; A4606; A4663

== ENCOUNTER 2024-02-14 20:48 | Emergency (ER) | payer OTHER ==
[~2024-02-14] VITALS: Ht 182.9 cm; Wt 68.0 kg
[~2024-02-14 20:48] MED LIST changes: +BENZ-13 PO; +BICT1TAB PO; -CEPH-570 PO; -CLIN300C12 PO; -FURO20TA90; -HYDR-3980 PO; -LEVO750T46 PO; -ONDA4TAB5 PO; -SULF1TAB48 PO; -[UNRECOGNIZED DRUG - REMARK]
[2024-02-14] MEDS ORDERED: KETOROLAC TROMETHAMINE 30 MG INJ ONE (22:03)
[2024-02-14] MEDS: KETOROLAC TROMETHAMINE 30 MG INJ IM ONE (22:11)
[2024-02-14 22:14] LABS: *BILIRUBIN,URIN NEGATIVE (NEGATIVE); *BLOOD, URINE NEGATIVE (NEGATIVE); *CLARITY,URINE CLEAR (CLEAR); *COLOR,URINE YELLOW (YELLOW); *KETONES,URINE NEGATIVE (NEGATIVE); *PROTEIN,URINE NEGATIVE (NEGATIVE); *UROBILINOGEN,URINE 0.2 E.U./dl (NORMAL); LEUKOCYTE ESTERASE ,URINE NEGATIVE (NEGATIVE); NITRITE, URINE NEGATIVE (NEGATIVE); UGLUCOSE NEGATIVE (NEGATIVE)
[2024-02-14 22:23] LABS: BASOPHILS # (AUTO) 0.1 K/UL (0.0-0.2); BASOPHILS % (AUTO) 1.4 % (0.0-2.0); EOSINOPHILS # (AUTO) 0.1 K/uL (0.0-0.7); EOSINOPHILS % (AUTO) 2.2 % (0.0-7.0); HEMATOCRIT 36.9 % (36.7-47.1); HEMOGLOBIN 12.5 g/dL (12.5-16.3); LYMPHOCYTES # (AUTO) 1.3 K/uL (0.8-4.8); LYMPHOCYTES % (AUTO) 33.1 % (20.5-51.5); MEAN CORPUSCULAR HEMOGLOBIN 30.5 uug (23.8-33.4); MEAN CORPUSCULAR HGB CONC 34 g/dL (32.5-36.3); MEAN CORPUSCULAR VOLUME 90.1 fL (73.0-96.2); MONOCYTES # (AUTO) 0.5 K/uL (0.1-1.30); MONOCYTES % (AUTO) 12.4 % (0.0-11.0); NEUTROPHILS % (AUTO) 50.9 % (38.5-71.5); PLATELET COUNT (AUTO) 271 K/uL (152-348); RED CELL DISTRIBUTION WIDTH 14.7 % (12.1-16.2); WHITE BLOOD COUNT (AUTO) 3.9 K/uL (3.6-10.2)
[2024-02-14 22:39] LABS: DIFFERENTIAL COMMENT 1
[2024-02-14 22:50] LABS: CALCIUM 8.7 mg/dL (8.5-10.1); CARBON DIOXIDE 29 mmol/L (21-32); CHLORIDE 102 mmol/L (98-107); CREATININE 1.1 mg/dL (0.6-1.3); GLUCOSE 73 mg/dL (74-106); POTASSIUM 3.9 mmol/L (3.5-5.1); SODIUM SERUM 139 mmol/L (136-145); UREA NITROGEN, BLOOD 23 mg/dL (7-18)
[2024-02-14 22:55] LABS: ALANINE AMINOTRANSFERASE 45 U/L (16-63); ALBUMIN 3.8 g/dL (3.4-5.0); ALKALINE PHOSPHATASE 99 U/L (50-136); ASPARTATE AMINOTRANSFERASE 63 U/L (15-37); BILIRUBIN,TOTAL 0.2 mg/dL (0.2-1.0); TOTAL PROTEIN, SERUM 8.2 g/dL (6.4-8.2)
[2024-02-14 23:00] LABS: *AMPHETAMINE, URINE POSITIVE (NEGATIVE); *BARBITURATE, URINE NEGATIVE (NEGATIVE); *BENZODIAZEPINE, URINE NEGATIVE (NEGATIVE); *CANNABINOID, URINE POSITIVE (NEGATIVE); *COCCAINE, URINE NEGATIVE (NEGATIVE); *OPIATE, URINE NEGATIVE (NEGATIVE); *PHENCYCLIDINE SCREEN,URINE NEGATIVE (NEGATIVE)
[2024-02-14 23:07] LABS: FENTANYL, URINE NEGATIVE (NEGATIVE)
[2024-02-14] MEDS ORDERED: CYCL10TA9 PO (23:10)
[2024-02-14 23:22] LABS: ETHANOL < 3 MG/DL (0-10)
[2024-02-15 00:01] VITALS: BP 149/84; O2SAT 99
== END 2024-02-14 23:45 | disposition home or self-care (01) ==
LOC: ER 20:52
DX: M62.830 Muscle spasm of back (principal); F41.9 Anxiety disorder, unspecified; F17.200 Nicotine dependence, unspecified, uncomplicated; Z79.899 Other long term (current) drug therapy; Z98.890 Other specified postprocedural states; Z60.2 Problems related to living alone
CPT/HCPCS: 80053; 81003; 85025; 36415; 71045; 99284; 96372; 80320; 80307; J1885; A4606; A4663; G0480